=== PATIENT | male | born 1955 | race Caucasian/White ===

== ENCOUNTER 2017-03-18 22:47 | Emergency (ER) | payer MEDICAID ==
[2017-03-18 22:48] VITALS: BMI 32.4
[2017-03-18 22:52] VITALS: PULSE 98; RESP 16; TEMP 98.2; O2SAT 98
[2017-03-19 00:04] LABS: BASO % 0.9 % (0.0-2.0); EOS # 0.1 K/uL (0.0-0.7); EOS % 1.4 % (0.0-4.0); HEMATOCRIT 40.5 % (35.0-51.0); LYMPH # 2.6 K/uL (1.0-4.3); LYMPH % 56.7 % (20.0-40.0); MEAN CELL VOLUME 85.2 fl (80.0-94.0); MEAN CORPUSCULAR HEMOGLOBIN 28.7 pg (27.0-31.0); MEAN CORPUSCULAR HGB CONC 33.7 g/dL (33.0-37.0); MEAN PLATELET VOLUME 9.1 fl (7.2-11.7); MONO # 0.4 K/uL (0.0-0.8); MONO % 9.4 % (0.0-10.0); NEUT # 1.5 K/uL (1.8-7.0); NEUT % 31.6 % (50.0-75.0); NRBC % 0.2 % (0.0-0.0); RED CELL DISTRIBUTION WIDTH 13.4 % (11.5-14.5); WHITE BLOOD COUNT 4.6 K/uL (4.8-10.8)
--- NOTE | 2017-03-19 00:28 | ED PDOC ---
HPI: General Adult Time Seen by Provider: 03/18/17 22:54 Chief Complaint (Nursing): ENT Problem Chief Complaint (Provider): epistaxis History Per: Patient History/Exam Limitations: no limitations Onset/Duration Of Symptoms: Mins (prior to arrival) Current Symptoms Are (Timing): Still Present Additional Complaint(s): 61 year old male with previous medical history of diabetes and hypertension, who presents to the emergency department with a complaint of exsanguinating from right nostril prior to arrival. Denied any headache, lightheadedness, dizziness, nose pain or trauma. Patient was seen 3 days ago at [facility] for a mild nosebleed. PMD: Jay Jay Russell MD Past Medical History Reviewed: Historical Data, Nursing Documentation, Vital Signs Vital Signs: Last Vital Signs Temp 98.2 F 03/18/17 22:50 Pulse 98 H 03/18/17 22:50 Resp 16 03/18/17 22:50 BP 168/96 H 03/18/17 22:50 Pulse Ox 98 03/19/17 01:42 - Medical History PMH: Diabetes, HTN - Family History Family History: States: Unknown Family Hx - Home Medications Home Medications: Ambulatory Orders Medication Instructions Recorded Amlodipine Besylate [Norvasc] 5 mg PO DAILY 02/22/13 Acetaminophen [Pain Reliever] 500 mg PO Q4 #30 tablet 03/19/17 Amoxicillin/Clavulanate [Augmentin 1 tab PO BID #7 tab 03/19/17 875 MG-125 MG] - Allergies Allergies/Adverse Reactions: Allergies Allergy/AdvReac Type Severity Reaction Status Date / Time No Known Allergies Allergy Verified 02/22/13 09:45 Review of Systems ROS Statement: Except As Marked, All Systems Reviewed And Found Negative ENT: Positive for: Nose Discharge (right nostril bleeding). Negative for: Nose Pain (or trauma) Neurological: Negative for: Headache, Dizziness (lightheaded) Physical Exam - Reviewed Nursing Documentation Reviewed: Yes Vital Signs Reviewed: Yes - Physical Exam Appears: Positive for: Well, Non-toxic, No Acute Distress Head Exam: Positive for: ATRAUMATIC, NORMAL INSPECTION, NORMOCEPHALIC Skin: Positive for: Normal Color Eye Exam: Positive for: Normal appearance ENT: Positive for: Other (active bleed in right nostril-unable to have visual of blood vessels. Normal left notril). Negative for: Normal ENT Inspection, Nasal Congestion Cardiovascular/Chest: Positive for: Regular Rate, Rhythm, Chest Non Tender Respiratory: Positive for: Normal Breath Sounds. Negative for: Decreased Breath Sounds, Respiratory Distress Neurologic/Psych: Positive for: Alert (x3), Oriented - Laboratory Results Result Diagrams: 03/18/17 23:57 03/18/17 23:57 - ECG O2 Sat by Pulse Oximetry: 98 (RA) Pulse Ox Interpretation: Normal Medical Decision Making Medical Decision Making: Initial Impression: Epistaxis; hypertensive Initial Plan: * Type and screen * BMP * CBC * PTT * PT Time: 2300 --S/P application of rhino-rocket: no active bleeding. --Blood pressure: 111/76. --Patient is well on re-evaluation. Time: 013 --Upon provider reevaluation, patient is feeling better, medically stable and requires no further treatment in the ED at this time. Patient will be discharged home with Rx for Augmentin 875mg. Counseling was provided and all questions were answered regarding diagnosis and need for follow up with ENT in 3 -4 days to have rhino-rocket removed. There is agreement to discharge plan. Return if symptoms persist or worsen. Clinical Impression: Epistaxis Scribe Attestation: Documented by Fanny Weber, acting as a scribe for Kojo Pickens MD. Provider Scribe Attestation: All medical record entries made by the Scribe were at my direction and personally dictated by me. I have reviewed the chart and agree that the record accurately reflects my personal performance of the history, physical exam, medical decision making, and the department course for this patient. I have also personally directed, reviewed, and agree with the discharge instructions and disposition. Disposition - Clinical Impression Clinical Impression: Epistaxis - Patient ED Disposition Is Patient to be Admitted: No Counseled Patient/Family Regarding: Diagnosis, Need For Followup - Disposition Referrals: Joel Menon MD [Staff Provider] - Disposition: Routine/Home Disposition Time: 01:39 Condition: IMPROVED Additional Instructions: Please have your rhino-rocket removed in 3 - 4 days. Take the antibiotics to prevent infection and tylenol for pain. Prescriptions: Acetaminophen [Pain Reliever] 500 mg PO Q4 #30 tablet Amoxicillin/Clavulanate [Augmentin 875 MG-125 MG] 1 tab PO BID #7 tab Instructions: Nosebleed (ED) Forms: [facility] (Russian)
[2017-03-19 00:40] LABS: BLOOD UREA NITROGEN 14 mg/dl (9-20); CALCIUM 9.3 mg/dL (8.4-10.2); CARBON DIOXIDE 23 mmol/L (22-30); CHLORIDE 100 mmol/L (98-107); GFR AFRICAN-AMERICAN > 60; GLUCOSE,RANDOM 150 mg/dL (75-110); POTASSIUM 3.8 MMOL/L (3.6-5.0); SODIUM 134 mmol/l (132-148)
[2017-03-19 01:26] LABS: PARTIAL THROMBOPLASTIN TIME 30.8 Seconds (25.6-37.1)
[2017-03-19 02:15] VITALS: BP 111/65
== END 2017-03-19 02:23 | disposition home or self-care (01) ==
LOC: H.ER 22:47
DX: R04.0 Epistaxis (principal); E11.9 Type 2 diabetes mellitus without complications; I10 Essential (primary) hypertension